=== PATIENT | male | born 1950 ===

== ENCOUNTER 2018-12-28 18:26 | Emergency (ER) | payer MEDICARE ==
[2018-12-28 19:01] VITALS: TEMP 98.2; O2SAT 99
--- NOTE | 2018-12-28 19:55 | ED PDOC ---
HPI: Skin/Bite Injury Time Seen by Provider: 12/28/18 19:05 Chief Complaint (Nursing): Abnormal Skin Integrity Chief Complaint (Provider): Rash History Per: Patient, Family ([facility], #[id number]) History/Exam Limitations: no limitations Onset/Duration Of Symptoms: Days (x1 week) Current Symptoms Are (Timing): Still Present Additional Complaint(s): 68 year old male presents to the ED for evaluation of a rash to his stomach and diffuse itchiness. Patient reports that one week ago he was in [place] where he went out to eat and became intoxicated. He then noticed the rash and itching began, so went to multiple clinics in [place] where he was given multiple IVs (which he can not remember of what) and pills (also cannot remember of what). His persistent symptoms prompted him to come in for evaluation. PMD: none provided Past Medical History Reviewed: Historical Data, Nursing Documentation, Vital Signs Vital Signs: Last Vital Signs Temp 98.2 F 12/28/18 19:00 Pulse 75 12/28/18 19:00 Resp 16 12/28/18 19:00 BP 121/73 12/28/18 19:00 Pulse Ox 99 12/28/18 19:00 - Medical History PMH: No Chronic Diseases - Surgical History Surgical History: No Surg Hx - Family History Family History: States: Unknown Family Hx - Social History Current smoker - smoking cessation education provided: No Alcohol: Social Drugs: Denies - Home Medications Home Medications: Ambulatory Orders Medication Instructions Recorded Methylprednisolone [Medrol Dose 4 mg PO ASDIR #21 mg 12/28/18 Pack (21 tabs)] - Allergies Allergies/Adverse Reactions: Allergies Allergy/AdvReac Type Severity Reaction Status Date / Time No Known Allergies Allergy Verified 12/28/18 18:59 Review of Systems ROS Statement: Except As Marked, All Systems Reviewed And Found Negative Skin: Positive for: Rash (itchy rash to stomach), Other (diffuse itchiness) Physical Exam - Reviewed Nursing Documentation Reviewed: Yes Vital Signs Reviewed: Yes - Physical Exam Appears: Positive for: No Acute Distress Skin: Positive for: Rash (one erythematous macular, non-papular, non-vesicular rash locaized to medial lower abdomen; pruritis on head, gentials, rectum, and abdomen) Cardiovascular/Chest: Positive for: Regular Rate, Rhythm Respiratory: Positive for: Normal Breath Sounds. Negative for: Respiratory Distress Gastrointestinal/Abdominal: Positive for: Normal Exam, Soft. Negative for: Tenderness Neurologic/Psych: Positive for: Alert, Oriented (x3). Negative for: Mo tor/Sensory Deficits - Laboratory Results Result Diagrams: 12/28/18 20:34 12/28/18 20:34 - ECG O2 Sat by Pulse Oximetry: 99 (RA) Pulse Ox Interpretation: Normal Medical Decision Making Medical Decision Making: Time: 1944 Initial Impression: rash on abdomen Initial Plan: --CMP --CBC with differential --Urinalysis 2113 Patient reports that the pruritus has improved. Scribe Attestation: Documented by Farida Jiménez, acting as a scribe for Ben Matias PA-C. Provider Scribe Attestation: All medical record entries made by the Scribe were at my direction and personally dictated by me. I have reviewed the chart and agree that the record accurately reflects my personal performance of the history, physical exam, medical decision making, and the department course for this patient. I have also personally directed, reviewed, and agree with the discharge instructions and disposition. Disposition - Clinical Impression Clinical Impression: Generalized pruritus - Patient ED Disposition Is Patient to be Admitted: No Counseled Patient/Family Regarding: Diagnosis, Need For Followup, Rx Given - Disposition Referrals: [facility] [Outside] [facility] [Outside] Disposition: Routine/Home Disposition Time: 21:24 Condition: STABLE Prescriptions: Methylprednisolone [Medrol Dose Pack (21 tabs)] 4 mg PO ASDIR #21 mg Forms: [facility] (British), [facility] ([place]ymro) Print Language: CZECH
[2018-12-28] MEDS ORDERED: DiphenhydrAMINE 50 mg/ml Inj IM STA (20:15)
[2018-12-28] MEDS ORDERED: Dexamethasone 4 mg/1 ml ONE (20:38)
[2018-12-28 20:48] LABS: BASO % 0.3 % (0.0-2.0); EOS # 0.2 K/uL (0.0-0.7); EOS % 1.6 % (0.0-4.0); HEMOGLOBIN 15.3 g/dL (12.0-18.0); LYMPH # 1.7 K/uL (1.0-4.3); LYMPH % 16.8 % (20.0-40.0); MEAN CELL VOLUME 93.4 fl (80.0-94.0); MEAN CORPUSCULAR HEMOGLOBIN 31.1 pg (27.0-31.0); MEAN CORPUSCULAR HGB CONC 33.3 g/dL (33.0-37.0); MEAN PLATELET VOLUME 9.1 fl (7.2-11.7); MONO # 0.9 K/uL (0.0-0.8); NEUT # 7.4 K/uL (1.8-7.0); NEUT % 72.3 % (50.0-75.0); NRBC % 0.1 % (0.0-0.0); RBC 4.93 Mil/uL (4.40-5.90); RED CELL DISTRIBUTION WIDTH 14.1 % (11.5-14.5); WHITE BLOOD COUNT 10.2 K/uL (4.8-10.8)
[2018-12-28 20:49] LABS: URINE BILIRUBIN NEGATIVE (NEGATIVE); URINE BLOOD NEGATIVE (NEGATIVE); URINE CLARITY CLEAR (Clear); URINE COLOR YELLOW (YELLOW); URINE GLUCOSE (UA) NEG (NEGATIVE); URINE LEUKOCYTE ESTERASE NEG Leu/uL (Negative); URINE PROTEIN NEGATIVE (NEGATIVE); URINE UROBILINOGEN 0.2-1.0 mg/dL (0.2-1.0)
[2018-12-28 20:59] LABS: ALB/GLOB RATIO 1.3 (1.0-2.1)
[2018-12-28 21:00] LABS: ALBUMIN 3.6 g/dL (3.5-5.0); ALT/SGPT 27 U/L (21-72); AST/SGOT 23 U/L (17-59); BLOOD UREA NITROGEN 11 mg/dl (9-20); CALCIUM 8.6 mg/dL (8.4-10.2); GFR NON-AFRICAN AMERICAN > 60
[2018-12-28] MEDS ORDERED: Dexamethasone 4 mg/1 ml IM ONE (21:00)
[2018-12-28 21:33] VITALS: BP 123/75; PULSE 71; RESP 18
== END 2018-12-28 21:43 | disposition home or self-care (01) ==
LOC: H.ER 18:26
DX: L29.9 Pruritus, unspecified (principal)
CPT/HCPCS: 80053; 81003; 85025; 96372; 99283; J1100; J1200